=== PATIENT | female | born 1985 ===

== ENCOUNTER 2017-11-19 12:36 | Emergency (ER) | payer OTHER ==
[2017-11-19 13:02] VITALS: BP 137/97; PULSE 70; RESP 16; TEMP 98; O2SAT 100
--- NOTE | 2017-11-19 13:56 | ED PDOC ---
HPI: Back Time Seen by Provider: 11/19/17 13:10 Chief Complaint (Nursing): Back Pain Chief Complaint (Provider): Right Neck and Right Lower Back Pain History Per: Patient History/Exam Limitations: no limitations Onset/Duration Of Symptoms: Days Current Symptoms Are (Timing): Still Present Previous Symptoms: None Associated Symptoms: None Additional Complaint(s): 32 year old female presenting to the ED complaining of dysuria, vaginal odor and yellow vaginal discharge. The patient states that she does douche every month after her period and she has not had similar symptoms in the past. She reports that she is sexually active and she last engaged in intercourse 3-4 days ago. Denies, fever, flank pain, back pain. Past Medical History Reviewed: Historical Data, Nursing Documentation, Vital Signs Vital Signs: Last Vital Signs Temp 98.0 F 11/19/17 13:01 Pulse 70 11/19/17 13:01 Resp 16 11/19/17 13:01 BP 137/97 H 11/19/17 13:01 Pulse Ox 100 11/19/17 13:01 - Medical History PMH: No Chronic Diseases - Surgical History Surgical History: No Surg Hx - Family History Family History: States: No Known Family Hx - Social History Current smoker - smoking cessation education provided: No Ex-Smoker (has not smoked in the last 12 months): No Alcohol: Social Drugs: Denies - Immunization History Hx Tetanus Toxoid Vaccination: No Hx Influenza Vaccination: No Hx Pneumococcal Vaccination: No - Home Medications Home Medications: Ambulatory Orders Medication Instructions Recorded Omeprazole 20 mg PO HS #30 tablet. 05/07/17 Metronidazole [Metrogel-Vaginal] 1 ea VG HS #70 gm 11/19/17 - Allergies Allergies/Adverse Reactions: Allergies Allergy/AdvReac Type Severity Reaction Status Date / Time No Known Allergies Allergy Verified 05/07/17 04:28 Review of Systems ROS Statement: Except As Marked, All Systems Reviewed And Found Negative Constitutional: Negative for: Fever Genitourinary Female: Positive for: Dysuria, Vaginal Discharge (yellow), Other ( vaginal odor) Musculoskeletal: Negative for: Back Pain Physical Exam - Reviewed Nursing Documentation Reviewed: Yes Vital Signs Reviewed: Yes - Physical Exam Appears: Positive for: No Acute Distress Head Exam: Positive for: ATRAUMATIC, NORMAL INSPECTION, NORMOCEPHALIC Skin: Positive for: Normal Color, Warm, Dry. Negative for: Rash Eye Exam: Positive for: Normal appearance. Negative for: Nystagmus Cardiovascular/Chest: Positive for: Regular Rate, Rhythm, Chest Non Tender. Negative for: Tachycardia Respiratory: Positive for: Normal Breath Sounds. Negative for: Wheezing, Respiratory Distress Gastrointestinal/Abdominal: Positive for: Normal Exam, Bowel Sounds, Soft. Negative for: Tenderness, Guarding, Rebound Pelvic Exam: Positive for: External Exam Normal, Discharge (creamy white vaginal discharge). Negative for: No Cerv. Motion Tender, Blood, Lesions, Tender W/Cervical Motion Back: Positive for: Normal Inspection. Negative for: L CVA Tenderness, R CVA Tenderness Neurologic/Psych: Positive for: Alert, Oriented - ECG O2 Sat by Pulse Oximetry: 100 (RA) Pulse Ox Interpretation: Normal Medical Decision Making Medical Decision Makin Initial Impression 32 y/o female presenting with right neck and right lower back pain Initial Plan: * Udip * Upreg * Chlamydia GC RNA * Urine C&S * Reevaluation Patient advised to stop douching. Documented by Lashaun Zuniga acting as a scribe for Joey Garcia PA-C. All medical record entries made by the Scribe were at my direction and personally dictated by me. I have reviewed the chart and agree that the record accurately reflects my personal performance of the history, physical exam, medical decision making, and the department course for this patient. I have also personally directed, reviewed, and agree with the discharge instructions and disposition. Disposition - Clinical Impression Clinical Impression: Bacterial vaginosis - Patient ED Disposition Is Patient to be Admitted: No - Disposition [facility] Disposition: Routine/Home Disposition Time: 13:40 Condition: STABLE Prescriptions: Metronidazole [Metrogel-Vaginal] 1 ea VG HS #70 gm Instructions: Bacterial Vaginosis (ED) Forms: [facility] (Gambian) Print Language: LITHUANIAN
== END 2017-11-19 14:19 | disposition home or self-care (01) ==
LOC: H.ER 12:36
DX: N76.0 Acute vaginitis (principal); B96.89 Other specified bacterial agents as the cause of diseases classified elsewhere